=== PATIENT | male | born 1950 | race Caucasian/White ===

== ENCOUNTER 2024-09-24 09:30 | Emergency (ER) | payer MEDICARE ==
[~2024-09-24] VITALS: Ht 177.8 cm; Wt 79.5 kg
[~2024-09-24 09:30] MED LIST: ACET600C5 PO; BERBERINE PO; CHOL2000 PO; LYR25C PO; METHYL GUARD; OMEG500C PO; PANTETHINE; PSYL3.4P5 PO; SULF1TAB49 PO; TURM500C3 PO; VITA40TA PO; [UNRECOGNIZED DRUG - OTHER] PO
--- NOTE | 2024-09-24 09:39 | ELECTROCARDIOGRAPH REPORT ---
[facility] Test Date: 2024-09-24 Test Time: 09:37:10 Pat Name: ANGELA BLACK Department: [facility]-ER Patient ID: 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 Reading MD: Dr. Sabas Ko Measurements Intervals [place] Rate: 86 P: 40 CA: 174 QRS: 17 QRSD: 93 T: 64 QT: 371 QTc: 444 Interpretive Statements Sinus rhythm ST elevation suggests acute pericarditis Electronically Signed On 09-24-2024 18:47:[address] Sabas Ko Please click the below link to view image of tracing.
[2024-09-24 10:11] LABS: BASOPHILS % (AUTO) 0.3 % (0-1); EOSINOPHILS # (AUTO) 0.2 X10'3 (0-0.9); EOSINOPHILS % (AUTO) 3.1 % (0-6); HEMATOCRIT 41.3 % (42.0-52.0); HEMOGLOBIN 13.8 g/dl (14.0-17.9); LYMPHOCYTES # (AUTO) 0.9 X10'3 (1.1-4.8); LYMPHOCYTES % (AUTO) 13.5 % (21-51); MEAN CORPUSCULAR HEMOGLOBIN 29.3 PG (27.0-31.0); MEAN CORPUSCULAR HGB CONC 33.4 g/dL (33.0-36.5); MEAN CORPUSCULAR VOLUME 87.8 FL (78-98); MEAN PLATELET VOLUME 7.9 FL (7.4-10.4); MONOCYTES # (AUTO) 0.8 X10'3 (0-0.9); MONOCYTES % (AUTO) 12.1 % (2-12); NEUTROPHILS # (AUTO) 4.7 X10'3 (1.8-7.7); PLATELET COUNT 158 X10'3 (140-440); RED BLOOD COUNT 4.71 X10'6 (4.70-6.10); RED CELL DISTRIBUTION WIDTH 13.5 % (11.5-14.5); WHITE BLOOD COUNT 6.7 X10'3 (4.5-11.0)
--- NOTE | 2024-09-24 10:15 | RADIOLOGY REPORT ---
DI CHEST,SINGLE VIEW, HISTORY: CP COMPARISON: None None TECHNICAL DATA: 1 view of the chest was obtained. FINDINGS: Lines and tubes: None Cardiomediastinal silhouette: normal Pulmonary vasculature: normal Lung expansion: normal Lung airspace: normal Lung interstitium: normal Pleura: normal Pneumothorax: no Bones: Unremarkable Other: no IMPRESSION: No acute intrathoracic abnormality.
[2024-09-24 10:30] LABS: ALBUMIN 3.4 G/DL (3.4-5.0); ANION GAP 9 (8-16); BLOOD UREA NITROGEN 20 MG/DL (7-18); BUN/CREATININE RATIO 17.2 (10.0-20.0); CALCIUM 8.9 MG/DL (8.5-10.1); CHLORIDE 105 MMOL/L (99-107); CREATININE 1.16 MG/DL (0.60-1.10); GLUCOSE 113 MG/DL (70-104); POTASSIUM 4.1 MMOL/L (3.5-5.1); PRO BRAIN NATRIURETIC PEPTIDE 245 PG/ML (0-125); SODIUM 140 MMOL/L (135-145); TOTAL CARBON DIOXIDE 26.4 MMOL/L (24-32); eCRCL 59 ML/MIN; eGFR 62 ML/MIN
--- NOTE | 2024-09-24 11:53 | Physician Documentation ---
History of Present Illness ~ Chief Complaint: Chest Pain Stated Complaint: CP Time Seen by MD: 09:35 Primary Medical Doctor: EDGAR THOMAS Mode of Arrival: POV HPI 74 year old male presents reporting chest pain that has been bothering him for several days since he had an intense workout including yoga with prolonged plank holds. 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 Medina. This morning he noted that his pain was worse on deep inspiration but denies SOB, fevers, cough, diarrhea, vomiting. Medication Reconciliation Allergies: Coded Allergies: vancomycin (Verified Allergy, Unknown, MACULO-PAPULAR RASH, 09/24/24) ezetimibe (Verified Adverse Reaction, Unknown, PAINFUL MYOPATHY, 09/24/24) simvastatin (Verified Adverse Reaction, Unknown, PAINFUL MYOPATHY, 09/24/24) Scheduled Acetylcysteine (D-Sydass-w-Cysteine), 1 CAP PO BID, (Reported) Cholecalciferol (Vitamin D3) (Vitamin D-3), 2,000 UNIT PO DAILY, (Reported) Pregabalin* (Lyrica*), 150 MG PO BID, (Reported) Psyllium Husk/Aspartame (Metamucil Fiber Singles Packet), 2 TBS PO BID, (Reported) Sulfamethoxazole/Trimethoprim (Bactrim Ds Tablet), 1 TAB PO Q12H, (Reported) Turmeric Root Extract (Turmeric), 1 CAP PO BID, (Reported) Vitamin K2 (Vitamin K2), 1 MG PO DAILY, (Reported) [5-Loxin], 150 MG PO BID, (Reported) [Berberine], 400 MG PO TID, (Reported) Miscellaneous Medications [place]-3 Fatty Acids (Fish Oil), 500 MG PO, (Reported) [Methyl Guard 3 Po Qd], (Reported) [Pantethine 250MG Tid], (Reported) Review of Systems All Other Systems at this time: Reviewed and Negative Physical Exam Vital Signs: RN Vital Signs have been reviewed: Yes, Temperature: 97.5, Source: Temporal, Heart Rate: 68, Respiratory Rate: 11, BP: 124/69, Pulse Oximetry: 97, Weight: 79.550 Oxygen Flow Rate: 0 Physical Exam HEENT: PERRL, moist oral mucosa, EOMI Pulmonary: No respiratory distress Cardiac: RRR, no murmur, rub or gallop MSK: no deformity Skin: w/d/i, no rash Neuro: alert, nonfocal Psych: normal affect Progress Results/Orders Results/Orders Orders - FRANCY POWERS MD Chest,Single View (09/24/24 09:34) Monitor (09/24/24 09:34) Saline Lock (09/24/24 09:34) Oxygen (09/24/24 09:34) Hs Troponin I W Calculations (09/24/24 12:34) Completed Orders - FRANCY POWERS MD Chest,Single View (09/24/24 09:34) Cbc/Diff (09/24/24 09:34) BMP (09/24/24 09:34) PBNP (09/24/24 09:34) Electrocardiogram (09/24/24 09:34) Hs Troponin I W Calculations (09/24/24 09:34) Hs Troponin I W Calculations (09/24/24 11:34) Vital Signs 09/24/24 09/24/24 09/24/24 09:31 10:39 11:30 Temp 97.5 Pulse 85 68 Resp 16 16 11 B/P (MAP) 148/77 124/69 (87) Pulse Ox 99 97 O2 Flow Rate 0 0 Laboratory Tests Test 09/24/24 09:53 09/24/24 11:17 White Blood Count 6.7 Red Blood Count 4.71 Hemoglobin 13.8 L Hematocrit 41.3 L Mean Corpuscular Volume 87.8 Mean Corpuscular Hemoglobin 29.3 Mean Corpuscular Hemoglobin Concent 33.4 Red Cell Distribution Width 13.5 Platelet Count 158 Mean Platelet Volume 7.9 Neutrophils (%) (Auto) 71.0 Lymphocytes (%) (Auto) 13.5 L Monocytes (%) (Auto) 12.1 H Eosinophils (%) (Auto) 3.1 Basophils (%) (Auto) 0.3 Neutrophils # (Auto) 4.7 Lymphocytes # (Auto) 0.9 L Monocytes # (Auto) 0.8 Eosinophils # (Auto) 0.2 Basophils # (Auto) 0.0 CBC Comment Sodium Level 140 Potassium Level 4.1 Chloride Level 105 Carbon Dioxide Level 26.4 Anion Gap 9 Blood Urea Nitrogen 20 H Creatinine 1.16 H Estimated GFR/1.73 m2 62 BUN/Creatinine Ratio 17.2 Glucose Level 113 H Calcium Level 8.9 Troponin I High Sensitivity 8 6 Pro-B-Type Natriuretic Peptide 245 H Albumin 3.4 Chemistry Comments Troponin I High Sens Percent Delta 25 Troponin I Hi Sens Absolute Change -2 Medical Decision Making Findings 74 year old male with chest pain. Exam and vitals nonspecific, EKG interpreted by me demonstrated NSR at 86/min, no STEMI criteria, no dysrhythmia. CXR interpreted by me demonstrated no infiltrate, normal contours, no cardiomegaly, no acute findings. Multiple negative troponins. I feel that this represents musculoskeletal chest pain. Offered admission for inpatient chest pain workup and patient adamantly refused. Discharged with instructions to follow up with Dr. Medina and his PCP. Return precautions discussed. Additional Information ddx = OK/ACS, PNA, PTX, pericarditis, musculoskeletal chest pain, GERD Departure Disposition: HOME / SELF CARE / HOMELESS Impression: Primary Impression: Chest wall pain Discharge Instructions: Nonspecific Chest Pain, Adult Referrals: NO PRIMARY CARE PROVIDER (PCP) Education Educated: Patient, Family Educated regarding: diagnosis, treatment, prognosis, need for follow up Signature Scribe Signature: . Attestation: . FRANCY POWERS MD Sep 24, 2024 11:53
[2024-09-24 12:13] VITALS: BP 120/64; PULSE 71; RESP 19; TEMP 98; O2SAT 98
[2024-09-24] MEDS ORDERED: EZET10TA48 PO (20:36)
[2024-09-24] MEDS ORDERED: ROSU5TAB51 PO (20:36)
[2024-09-25] MEDS ORDERED: METO-395 PO (13:25)
[2024-09-25] MEDS ORDERED: ASPI-1265 PO (13:25)
[2024-09-25] MEDS ORDERED: PANT-47 PO (14:40)
== END 2024-09-24 12:15 | disposition home or self-care (01) ==
LOC: ER 09:31
DX: R07.89 Other chest pain (principal); Z88.1 Allergy status to other antibiotic agents; Z79.899 Other long term (current) drug therapy
CPT/HCPCS: 36415; 71045; 80048; 83880; 84484; 85025; 93005; 99285; J7030